=== PATIENT | female | born 2000 | race African-American/Black ===

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

== ENCOUNTER 2024-05-29 10:31 | Emergency (ER) | payer MEDICAID, OTHER ==
[~2024-05-29] VITALS: Ht 175.3 cm; Wt 87.0 kg
[~2024-05-29 10:31] MED LIST: FERR325T6 MT; PREN1TAB78 MT
[2024-05-29 10:50] VITALS: O2SAT 99
[2024-05-29] MEDS: IBUPROFEN 600MG TABLET PO ONE (11:30)
[2024-05-29 11:38] LABS: BASOPHILS % 0.5 % (0.0-2.0); EOSINOPHILS % 1.5 % (0.0-5.0); HEMATOCRIT. 36.3 % (36.0-48.0); HEMOGLOBIN. 12.1 g/dL (12.0-16.0); LYMPHOCYTES % 25.2 % (20.0-50.0); MEAN CORPUSCULAR HEMOGLOBIN 30.6 pg (28.0-32.0); MEAN CORPUSCULAR HGB CONC 33.2 g/dL (31.0-37.0); MEAN CORPUSCULAR VOLUME 92.3 fL (81.0-99.0); MEAN PLATELET VOLUME 9.7 fl (7.4-10.4); MONOCYTES % 6.3 % (2.0-8.0); NEUTROPHILS % 66.5 % (40.0-76.0); PLATELET 156 x1000/uL (130-400); RED BLOOD CELL COUNT 3.94 mill/uL (4.2-5.4); RED CELL DISTRIBUTION WIDTH 13.4 % (11.6-14.6)
[2024-05-29 11:42] LABS: CHLORIDE 108 mEq/L (98-107); POTASSIUM 4.3 mEq/L (3.5-5.1); SODIUM 137 mEq/L (136-145)
[2024-05-29 11:43] LABS: CARBON DIOXIDE 25 mEq/L (21-32)
[2024-05-29 11:44] LABS: CALCIUM 9.4 mg/dL (8.7-10.4)
[2024-05-29 11:48] LABS: CREATININE 0.9 mg/dL (0.6-1.0); GLUCOSE 83 mg/dL (70-105)
[2024-05-29 12:06] LABS: UREA NITROGEN BLOOD < 5 mg/dL (9-23)
[2024-05-29 13:24] LABS: CLARITY URINE CLEAR (CLEAR); COLOR URINE YELLOW (YELLOW); GLUCOSE URINE NEGATIVE (NEGATIVE); KETONES URINE NEGATIVE (NEGATIVE); LEUKOCYTE ESTERASE URINE 3+ (NEGATIVE); NITRITE URINE NEGATIVE (NEGATIVE); OCCULT BLOOD URINE NEGATIVE (NEGATIVE); PROTEIN URINE NEGATIVE (NEGATIVE); UROBILINOGEN URINE 0.2 E.U./dL (0.2-1.0)
[2024-05-29] MEDS ORDERED: ONDA4TAB50 PO (13:36)
[2024-05-29] MEDS ORDERED: SULF1TAB48 MT (13:36)
[2024-05-29] MEDS ORDERED: NAPR-681 MT (13:36)
[2024-05-29] MEDS ORDERED: METR-167 MT (13:36)
[2024-05-29 13:38] LABS: SQUAMOUS EPITHELIAL CELL URINE 2+ /lpf (RARE/1+)
[2024-05-29 13:39] LABS: RBC URINE 0-2 /hpf (0-2)
[2024-05-29 13:40] LABS: BACTERIA URINE TRACE
[2024-05-29 13:44] VITALS: BP 122/74; PULSE 72; RESP 12; TEMP 36.83628; O2SAT 99
[2024-06-01 04:12] LABS: CHLAMYDIA TRACHOMATIS NAA Negative (Negative); NEISSERIA GONORRHOEAE NAA Negative (Negative)
== END 2024-05-29 13:45 | disposition home or self-care (01) ==
LOC: ER 10:31
DX: N83.01 Follicular cyst of right ovary (principal); F41.9 Anxiety disorder, unspecified; F32.A Depression, unspecified; Z88.0 Allergy status to penicillin; Z79.899 Other long term (current) drug therapy; Z98.890 Other specified postprocedural states
CPT/HCPCS: 87491; 87591; 80048; 81003; 81025; 85025; 87086; 87210; 36415; 76830; 76856; 99284; Z7610

== ENCOUNTER 2024-06-16 13:26 | Emergency (ER) | payer OTHER ==
[~2024-06-16] VITALS: Ht 177.8 cm; Wt 87.0 kg
[~2024-06-16 13:26] MED LIST changes: +METR-167 MT; +NAPR-681 MT; +ONDA4TAB50 PO; +SULF1TAB48 MT
[2024-06-16 13:47] VITALS: O2SAT 98
[2024-06-16 13:49] VITALS: TEMP 98.9; O2SAT 99
[2024-06-16] MEDS ORDERED: FLUCONAZOLE 100MG TABLET PO ONE (14:15)
[2024-06-16] MEDS ORDERED: KETOROLAC 30MG/ML VIAL IM ONE (14:15)
[2024-06-16 14:56] LABS: CLARITY URINE TURBID (CLEAR); COLOR URINE YELLOW (YELLOW); GLUCOSE URINE NEGATIVE (NEGATIVE); KETONES URINE TRACE (NEGATIVE); LEUKOCYTE ESTERASE URINE NEGATIVE (NEGATIVE); NITRITE URINE NEGATIVE (NEGATIVE); OCCULT BLOOD URINE NEGATIVE (NEGATIVE); PH URINE 5.5 (4.5-8.0); PROTEIN URINE NEGATIVE (NEGATIVE); SPECIFIC GRAVITY URINE 1.031 (1.005-1.030); UROBILINOGEN URINE 0.2 E.U./dL (0.2-1.0)
[2024-06-16] MEDS ORDERED: CELE-146 MT (15:06)
[2024-06-16] MEDS ORDERED: FLUC150T46 MT (15:07)
[2024-06-16 15:31] LABS: HCG SCREEN NEGATIVE
[2024-06-16 15:55] LABS: BACTERIA URINE 2+; RBC URINE 0-2 /hpf (0-2); SQUAMOUS EPITHELIAL CELL URINE 2+ /lpf (RARE/1+); WBC URINE 0-2 /hpf (0-2)
[2024-06-16 16:19] VITALS: BP 133/87; PULSE 68; RESP 15
[2024-06-16] MEDS: FLUCONAZOLE 150MG TABLET PO NR (16:19)
[2024-06-16] MEDS: KETOROLAC 30MG/ML VIAL IM NR (16:19)
== END 2024-06-16 16:27 | disposition home or self-care (01) ==
LOC: ER 13:26
DX: R10.2 Pelvic and perineal pain (principal); N93.9 Abnormal uterine and vaginal bleeding, unspecified; F41.9 Anxiety disorder, unspecified; F32.A Depression, unspecified; Z98.890 Other specified postprocedural states; Z88.0 Allergy status to penicillin; Z88.8 Allergy status to other drugs, medicaments and biological substances
CPT/HCPCS: 99283; 81003; 84703; 96372; J1885